=== PATIENT | female | born 1990 | race Caucasian/White ===

== ENCOUNTER 2021-04-29 17:36 | Emergency (ER) | payer MEDICAID ==
[~2021-04-29] VITALS: Ht 157.5 cm; Wt 56.8 kg
[2021-04-29 18:20] LABS: BASOPHILS % (AUTO) 0.6 % (0.0-2.0); EOSINOPHILS % (AUTO) 0.9 % (1.0-6.0); HEMATOCRIT 38.7 % (36-46); HEMOGLOBIN 13.1 g/dL (12.0-16.0); LYMPHOCYTES # (AUTO) 1.7 K/uL (1.0-4.8); LYMPHOCYTES % (AUTO) 26.4 % (22.0-44.0); MEAN CORPUSCULAR HEMOGLOBIN 29.3 pg (26.0-34.0); MEAN CORPUSCULAR VOLUME 86 fL (80-100); MONOCYTES # (AUTO) 0.4 K/uL (0.1-1.0); MONOCYTES % (AUTO) 6.2 % (2.0-9.0); NEUTROPHILS # (AUTO) 4.2 K/uL (1.8-7.7); NEUTROPHILS % (AUTO) 65.9 % (40.0-70.0); PLATELET COUNT (AUTO) 377 K/uL (150-450); RED BLOOD CELL COUNT(AUTO) 4.48 MIL/uL (4.00-5.20); RED CELL DISTRIBUTION WIDTH 13.5 % (11.5-14.5)
[2021-04-29 18:29] LABS: ANION GAP 11 mmol/L (8-16); CALCIUM, TOTAL 9.2 mg/dL (8.8-10.5); CARBON DIOXIDE 28 mmol/L (22-29); CHLORIDE 102 mmol/L (98-107); CREATININE 0.77 mg/dL (0.60-1.30); GLOMERULAR FILTR. RATE CALC > 60 mL/min (>60); GLUCOSE,RANDOM 101 mg/dL (70-110); POTASSIUM 4.1 mmol/L (3.5-5.1); SODIUM SERUM 141 mmol/L (136-145); UREA NITROGEN, BLOOD 12 mg/dL (7-18)
[2021-04-29 18:33] LABS: INR 1.1 (0.9-1.1); PROTHROMBIN TIME 11.3 SEC (9.4-11.6)
[2021-04-29 18:41] LABS: ALANINE AMINOTRANSFERASE 24 U/L (12-78); ALBUMIN 4.2 g/dL (3.4-5.0); ALKALINE PHOSPHATASE 78 U/L (46-116); ASPARTATE AMINOTRANSFERASE 13 U/L (15-37); BILIRUBIN,TOTAL 0.2 mg/dL (0.1-1.0); HCG,QUANTITATIVE 1 mIU/mL (0-6); TOTAL PROTEIN, SERUM 7.9 g/dL (6.4-8.2)
[2021-04-29] MEDS ORDERED: IOHEXOL 350 MG/ML 100 ML VIAL ONE (19:41)
[2021-04-29] MEDS ORDERED: SODIUM CHLORIDE 0.9% 100 ML ONE (19:41)
[2021-04-29] MEDS ORDERED: IOHEXOL 350 MG/ML 75 ML VIAL ONE (19:47)
[2021-04-29] MEDS ORDERED: LEVE500T8 PO (20:51)
[2021-04-29] MEDS ORDERED: LevETIRAcetam 500 MG in DEXTROSE 5%-WATER 100 ML IV ONE (21:00)
[2021-04-29 21:15] VITALS: BP 109/79
== END 2021-04-29 21:25 | disposition home or self-care (01) ==
LOC: EMS 18:06
DX: R56.9 Unspecified convulsions (principal)
CPT/HCPCS: 36415; 70450; 70496; 70498; 71045; 80053; 84484; 84702; 85025; 85610; 85730; 86850; 86900; 86901; 93005; 96374; 99285; J0712; J7050; J7060; Q9967

== ENCOUNTER 2021-05-24 10:58 | Emergency (ER) | payer MEDICAID ==
[~2021-05-24] VITALS: Ht 157.5 cm; Wt 56.5 kg
[~2021-05-24 10:58] MED LIST: LEVE500T8 PO
[2021-05-24] MEDS ORDERED: SODIUM CHLORIDE 0.9% 1,000 ML IV ONE (11:45)
[2021-05-24 11:58] LABS: BASOPHILS % (AUTO) 0.8 % (0.0-2.0); EOSINOPHILS % (AUTO) 0.6 % (1.0-6.0); HEMATOCRIT 38.1 % (36-46); HEMOGLOBIN 12.8 g/dL (12.0-16.0); LYMPHOCYTES # (AUTO) 2.1 K/uL (1.0-4.8); LYMPHOCYTES % (AUTO) 26.1 % (22.0-44.0); MEAN CORPUSCULAR HEMOGLOBIN 29.1 pg (26.0-34.0); MEAN CORPUSCULAR HGB CONC 33.6 G/dL (31.0-37.0); MEAN CORPUSCULAR VOLUME 87 fL (80-100); MONOCYTES # (AUTO) 0.4 K/uL (0.1-1.0); MONOCYTES % (AUTO) 4.9 % (2.0-9.0); NEUTROPHILS # (AUTO) 5.6 K/uL (1.8-7.7); NEUTROPHILS % (AUTO) 67.6 % (40.0-70.0); PLATELET COUNT (AUTO) 379 K/uL (150-450); RED BLOOD CELL COUNT(AUTO) 4.39 MIL/uL (4.00-5.20)
[2021-05-24 12:04] LABS: ANION GAP 13 mmol/L (8-16); CARBON DIOXIDE 24 mmol/L (22-29); CHLORIDE 104 mmol/L (98-107); CREATININE 0.67 mg/dL (0.60-1.30); GLOMERULAR FILTR. RATE CALC > 60 mL/min (>60); GLUCOSE,RANDOM 101 mg/dL (70-110); POTASSIUM 3.6 mmol/L (3.5-5.1); SODIUM SERUM 141 mmol/L (136-145); UREA NITROGEN, BLOOD 13 mg/dL (7-18)
[2021-05-24 12:12] LABS: ALANINE AMINOTRANSFERASE 29 U/L (12-78); ALBUMIN 4.1 g/dL (3.4-5.0); ALKALINE PHOSPHATASE 72 U/L (46-116); ASPARTATE AMINOTRANSFERASE 17 U/L (15-37); BILIRUBIN,TOTAL 0.3 mg/dL (0.1-1.0); TOTAL PROTEIN, SERUM 7.9 g/dL (6.4-8.2)
[2021-05-24 12:41] VITALS: BP 113/75
== END 2021-05-24 12:48 | disposition home or self-care (01) ==
LOC: EMS 11:00
DX: R56.9 Unspecified convulsions (principal)
CPT/HCPCS: 36415; 80053; 82962; 85025; 96360; 99283; J7030

== ENCOUNTER 2021-06-10 18:04 | Emergency (ER) | payer MEDICAID ==
[~2021-06-10] VITALS: Ht 157.5 cm; Wt 56.8 kg
[2021-06-10] MEDS ORDERED: LORazepam 2 MG/ML VIAL ONE (18:08)
[2021-06-10] MEDS ORDERED: LORazepam 2 MG/ML VIAL IVP ONE (18:15)
[2021-06-10] MEDS ORDERED: SODIUM CHLORIDE 0.9% 1,000 ML IV ONE (18:15)
[2021-06-10 18:19] LABS: BASOPHILS % (AUTO) 0.8 % (0.0-2.0); EOSINOPHILS % (AUTO) 0.5 % (1.0-6.0); HEMATOCRIT 41.5 % (36-46); HEMOGLOBIN 14.1 g/dL (12.0-16.0); LYMPHOCYTES # (AUTO) 3.4 K/uL (1.0-4.8); MEAN CORPUSCULAR HEMOGLOBIN 29.1 pg (26.0-34.0); MEAN CORPUSCULAR VOLUME 86 fL (80-100); MONOCYTES # (AUTO) 0.6 K/uL (0.1-1.0); MONOCYTES % (AUTO) 5.4 % (2.0-9.0); NEUTROPHILS # (AUTO) 6.3 K/uL (1.8-7.7); NEUTROPHILS % (AUTO) 60.3 % (40.0-70.0); PLATELET COUNT (AUTO) 420 K/uL (150-450); RED BLOOD CELL COUNT(AUTO) 4.84 MIL/uL (4.00-5.20); RED CELL DISTRIBUTION WIDTH 13.8 % (11.5-14.5)
[2021-06-10 18:29] LABS: ANION GAP 14 mmol/L (8-16); CALCIUM, TOTAL 9.5 mg/dL (8.8-10.5); CARBON DIOXIDE 26 mmol/L (22-29); CHLORIDE 99 mmol/L (98-107); GLOMERULAR FILTR. RATE CALC > 60 mL/min (>60); GLUCOSE,RANDOM 96 mg/dL (70-110); POTASSIUM 3.5 mmol/L (3.5-5.1); SODIUM SERUM 139 mmol/L (136-145); UREA NITROGEN, BLOOD 12 mg/dL (7-18)
[2021-06-10 18:35] LABS: ALANINE AMINOTRANSFERASE 27 U/L (12-78); ALBUMIN 5.3 g/dL (3.4-5.0); ALKALINE PHOSPHATASE 90 U/L (46-116); ASPARTATE AMINOTRANSFERASE 15 U/L (15-37); BILIRUBIN,TOTAL 0.4 mg/dL (0.1-1.0)
[2021-06-10 20:36] LABS: HCG,QUANTITATIVE < 1 mIU/mL (0-6)
[2021-06-10 20:50] LABS: AMPHET/METH SCREEN,URINE NEGATIVE (NEGATIVE); BARBITURATE SCREEN, URINE NEGATIVE (NEGATIVE); BENZODIAZEPINES SCREEN,URINE POSITIVE (NEGATIVE); CANNABINOID SCREEN,URINE NEGATIVE (NEGATIVE); COCAINE SCREEN,URINE NEGATIVE (NEGATIVE); METHADONE SCREEN, URINE NEGATIVE (NEGATIVE); OPIATE SCREEN,URINE NEGATIVE (NEGATIVE)
[2021-06-10 20:52] LABS: PHENCYCLIDINE SCREEN,URINE NEGATIVE (NEGATIVE)
[2021-06-10 21:49] VITALS: BP 124/84
== END 2021-06-10 22:10 | disposition home or self-care (01) ==
LOC: EMS 18:04
DX: R56.9 Unspecified convulsions (principal)
CPT/HCPCS: 36415; 80053; 80307; 84702; 85025; 96361; 96374; 99283; G0480; J2060; J7030

== ENCOUNTER 2021-09-27 19:02 | Emergency (ER) | payer MEDICAID ==
[~2021-09-27] VITALS: Ht 160 cm; Wt 56.8 kg
[2021-09-27] MEDS ORDERED: LORazepam 1 MG TABLET PO ONE (19:15)
[2021-09-27 19:30] VITALS: BP 141/79
[2021-09-27 20:11] LABS: GLUCOMETER DEV NAME(LOC) ERT.5; GLUCOSE,POINT OF CARE 111 MG/DL (70-110)
== END 2021-09-28 01:13 | disposition home or self-care (01) ==
LOC: EMS 19:06
DX: G40.909 Epilepsy, unspecified, not intractable, without status epilepticus (principal); F10.20 Alcohol dependence, uncomplicated; Z87.442 Personal history of urinary calculi; Z87.440 Personal history of urinary (tract) infections
CPT/HCPCS: 82948; 82962; 99283

== ENCOUNTER 2022-03-17 23:59 | Emergency (ER) | payer MEDICAID ==
[~2022-03-17] VITALS: Ht 167.6 cm; Wt 54.5 kg
[2022-03-18] MEDS ORDERED: GABA-1181 PO ×2 (00:08→00:59)
[2022-03-18] MEDS ORDERED: LORA-999 PO (00:08)
[2022-03-18] MEDS ORDERED: HYDR-4808 PO (00:08)
[2022-03-18] MEDS ORDERED: SERT-158 PO ×2 (00:08→00:59)
[2022-03-18] MEDS ORDERED: HYDR50CA6 PO (00:29)
[2022-03-18] MEDS ORDERED: PRAZ1 PO ×2 (00:29→00:59)
[2022-03-18] MEDS ORDERED: LEVE500T20 PO (00:29)
[2022-03-18] MEDS ORDERED: TRAZ-252 PO ×2 (00:29→00:59)
[2022-03-18] MEDS ORDERED: HYDR50CA7 PO (00:59)
[2022-03-18] MEDS ORDERED: LORA-1000 PO (00:59)
[2022-03-18] MEDS ORDERED: TraZODone HCL 50 MG TABLET PO ONE (01:00)
[2022-03-18] MEDS ORDERED: LORazepam 2 MG TABLET PO ONE (01:00)
[2022-03-18 02:06] VITALS: BP 135/69
== END 2022-03-18 02:11 | disposition home or self-care (01) ==
LOC: EMS 03-18 00:03
DX: F41.9 Anxiety disorder, unspecified (principal); F43.10 Post-traumatic stress disorder, unspecified; F32.A Depression, unspecified; Z98.890 Other specified postprocedural states; X58.XXXA Exposure to other specified factors, initial encounter; Y93.89 Activity, other specified; Y92.89 Other specified places as the place of occurrence of the external cause; Y99.8 Other external cause status
CPT/HCPCS: 99283

== ENCOUNTER 2022-06-11 22:24 | Emergency (ER) | payer MEDICAID ==
[~2022-06-11] VITALS: Ht 157.5 cm; Wt 54.5 kg
[~2022-06-11 22:24] MED LIST changes: +GABA-1181 PO; +HYDR50CA6 PO; +HYDR50CA7 PO; +LEVE500T20 PO; +LORA-1000 PO; +LORA-999 PO; +PRAZ1 PO; +SERT-158 PO; +TRAZ-252 PO
[2022-06-11] MEDS ORDERED: ACETAMINOPHEN 500 MG TABLET PO ONE (23:30)
[2022-06-11 23:45] LABS: BASOPHILS % (AUTO) 0.5 % (0.0-2.0); EOSINOPHILS % (AUTO) 0.1 % (1.0-6.0); HEMATOCRIT 38.3 % (36-46); HEMOGLOBIN 12.9 g/dL (12.0-16.0); LYMPHOCYTES # (AUTO) 1.3 K/uL (1.0-4.8); LYMPHOCYTES % (AUTO) 13.7 % (22.0-44.0); MEAN CORPUSCULAR HEMOGLOBIN 28.3 pg (26.0-34.0); MEAN CORPUSCULAR HGB CONC 33.6 G/dL (31.0-37.0); MEAN CORPUSCULAR VOLUME 84 fL (80-100); MONOCYTES # (AUTO) 0.5 K/uL (0.1-1.0); MONOCYTES % (AUTO) 5.2 % (2.0-9.0); NEUTROPHILS # (AUTO) 7.8 K/uL (1.8-7.7); NEUTROPHILS % (AUTO) 80.5 % (40.0-70.0); PLATELET COUNT (AUTO) 300 K/uL (150-450); RED BLOOD CELL COUNT(AUTO) 4.54 MIL/uL (4.00-5.20); RED CELL DISTRIBUTION WIDTH 16.6 % (11.5-14.5)
[2022-06-11 23:54] LABS: ANION GAP 9 mmol/L (8-16); CALCIUM, TOTAL 8.8 mg/dL (8.8-10.5); CARBON DIOXIDE 28 mmol/L (22-29); CHLORIDE 102 mmol/L (98-107); CREATININE 0.86 mg/dL (0.60-1.30); GLOMERULAR FILTR. RATE CALC > 60 mL/min (>60); GLUCOSE,RANDOM 104 mg/dL (70-110); POTASSIUM 3.4 mmol/L (3.5-5.1); SODIUM SERUM 139 mmol/L (136-145); UREA NITROGEN, BLOOD 7 mg/dL (7-18)
[2022-06-12 00:01] LABS: ALANINE AMINOTRANSFERASE 90 U/L (12-78); ALBUMIN 4.5 g/dL (3.4-5.0); ALKALINE PHOSPHATASE 109 U/L (46-116); ASPARTATE AMINOTRANSFERASE 70 U/L (15-37); BILIRUBIN,TOTAL 0.2 mg/dL (0.1-1.0); TOTAL PROTEIN, SERUM 8.2 g/dL (6.4-8.2)
[2022-06-12 00:13] LABS: COVID AG,FIA SOURCE NASOPHARYNGEAL
[2022-06-12 00:37] LABS: INFLUENZA TYPE A NEGATIVE FOR TYPE A (NEGATIVE); INFLUENZA TYPE B NEGATIVE FOR TYPE B (NEGATIVE)
[2022-06-12 01:37] VITALS: BP 110/70
== END 2022-06-12 01:40 | disposition home or self-care (01) ==
LOC: EMS 23:03
DX: F32.A Depression, unspecified (principal); U07.1 COVID-19; F41.9 Anxiety disorder, unspecified; Z98.890 Other specified postprocedural states
CPT/HCPCS: 99284; 71045; 87426; 80053; 85025; 87804; 36415; G0480

== ENCOUNTER 2022-09-12 20:37 | Inpatient (IN) | payer MEDICAID ==
[~2022-09-12] VITALS: Ht 157.5 cm; Wt 56.8 kg
[~2022-09-12 20:37] MED LIST changes: -TRAZ-252 PO
[2022-09-12 21:54] LABS: COVID AG,FIA SOURCE NASOPHARYNGEAL
[2022-09-12 21:56] LABS: APPEARANCE,URINE HAZY (CLEAR); BILIRUBIN,URINE NEGATIVE (NEGATIVE); GLUCOSE, URINE (UA) NEGATIVE (NEGATIVE); KETONES,URINE NEGATIVE (NEGATIVE); LEUKOCYTE ESTERASE ,URINE NEGATIVE (NEGATIVE); NITRATE,URINE NEGATIVE (NEGATIVE); OCCULT BLOOD,URINE MODERATE (NEGATIVE); PH,URINE 5.5 (5.0-8.0); PROTEIN,URINE NEGATIVE (NEGATIVE); SPECIFIC GRAVITIY, URINE 1.003 (1.003-1.030); UROBILINOGEN,URINE <=1.0 mg/dL (<=1.0)
[2022-09-12 22:02] LABS: AMPHET/METH SCREEN,URINE NEGATIVE (NEGATIVE); BARBITURATE SCREEN, URINE NEGATIVE (NEGATIVE); BENZODIAZEPINES SCREEN,URINE NEGATIVE (NEGATIVE); CANNABINOID SCREEN,URINE NEGATIVE (NEGATIVE); COCAINE SCREEN,URINE NEGATIVE (NEGATIVE); METHADONE SCREEN, URINE NEGATIVE (NEGATIVE); OPIATE SCREEN,URINE NEGATIVE (NEGATIVE); PHENCYCLIDINE SCREEN,URINE NEGATIVE (NEGATIVE)
[2022-09-12 22:05] LABS: SQUAMOUS EPITHELIAL CELL,UR Many /LPF (None Seen)
[2022-09-12 22:07] LABS: RBC,URINE 0-2 /HPF (0-2); WBC,URINE 0-2 /HPF (0-5)
[2022-09-12 22:09] LABS: BACTERIA,URINE Rare /HPF (None Seen)
[2022-09-12] MEDS: ZOLPIDEM TARTRATE 10 MG TABLET PO PRN (22:28)
[2022-09-12] MEDS: LORazepam 2 MG TABLET PO PRN (22:29)
[2022-09-12] MEDS ORDERED: HALOPERIDOL 5 MG TABLET PO PRN (22:30)
[2022-09-12 22:34] LABS: BASOPHILS % (AUTO) 0.9 % (0.0-2.0); EOSINOPHILS % (AUTO) 1.1 % (1.0-6.0); HEMATOCRIT 39.2 % (36-46); HEMOGLOBIN 12.8 g/dL (12.0-16.0); LYMPHOCYTES # (AUTO) 3.3 K/uL (1.0-4.8); LYMPHOCYTES % (AUTO) 38.9 % (22.0-44.0); MEAN CORPUSCULAR HEMOGLOBIN 28.1 pg (26.0-34.0); MEAN CORPUSCULAR HGB CONC 32.7 G/dL (31.0-37.0); MEAN CORPUSCULAR VOLUME 86 fL (80-100); MONOCYTES # (AUTO) 0.3 K/uL (0.1-1.0); MONOCYTES % (AUTO) 2.9 % (2.0-9.0); NEUTROPHILS # (AUTO) 4.8 K/uL (1.8-7.7); NEUTROPHILS % (AUTO) 56.2 % (40.0-70.0); PLATELET COUNT (AUTO) 405 K/uL (150-450); RED BLOOD CELL COUNT(AUTO) 4.56 MIL/uL (4.00-5.20); RED CELL DISTRIBUTION WIDTH 14.5 % (11.5-14.5)
[2022-09-12 22:43] LABS: ANION GAP 15 mmol/L (8-16); CALCIUM, TOTAL 9.2 mg/dL (8.8-10.5); CARBON DIOXIDE 23 mmol/L (22-29); CHLORIDE 103 mmol/L (98-107); CREATININE 0.71 mg/dL (0.60-1.30); GLOMERULAR FILTR. RATE CALC > 60 mL/min (>60); GLUCOSE,RANDOM 90 mg/dL (70-110); POTASSIUM 3.1 mmol/L (3.5-5.1); SODIUM SERUM 141 mmol/L (136-145)
[2022-09-12 22:51] LABS: ALANINE AMINOTRANSFERASE 29 U/L (12-78); ALBUMIN 4.6 g/dL (3.4-5.0); ALKALINE PHOSPHATASE 98 U/L (46-116); ASPARTATE AMINOTRANSFERASE 18 U/L (15-37); BILIRUBIN,TOTAL 0.1 mg/dL (0.1-1.0); TOTAL PROTEIN, SERUM 8.5 g/dL (6.4-8.2)
[2022-09-12] MEDS ORDERED: LIDOCAINE 1% 10 ML VIAL SQ ONE (23:15)
[2022-09-12] MEDS ORDERED: POTASSIUM CHLORIDE 20 MEQ ER TABLET PO ONE (23:30)
[2022-09-13 00:59] VITALS: BP 112/60; PULSE 96; RESP 18; TEMP 98; O2SAT 98
[2022-09-13 08:00] VITALS: BP 93/56; PULSE 59; RESP 18; TEMP 98.3; O2SAT 97
[2022-09-13] MEDS: LevETIRAcetam 500 MG TABLET PO SCH ×2 (08:36→16:33)
[2022-09-13] MEDS ORDERED: CloNIDine HCL 0.1 MG TABLET PO PRN (08:45)
[2022-09-13] MEDS ORDERED: ONDANSETRON HCL 4 MG TABLET PO PRN (08:45)
[2022-09-13] MEDS ORDERED: GuaiFENesin/D-METHORPHAN [SUGAR-FREE] 200-20MG/10 ML SYRUP UDCUP PO PRN (08:45)
[2022-09-13] MEDS ORDERED: IBUPROFEN 400 MG TABLET PO PRN (08:45)
[2022-09-13] MEDS ORDERED: LOPERAMIDE HCL 2 MG CAPSULE PO PRN (08:45)
[2022-09-13] MEDS ORDERED: ALBUTEROL SULFATE HFA 90 MCG/PUFF 8 GM INHALER IH PRN (08:45)
[2022-09-13] MEDS ORDERED: PETROLATUM,WHITE 28 GM JELLY TP PRN (08:45)
[2022-09-13] MEDS ORDERED: DOCUSATE SODIUM 100 MG CAPSULE PO PRN (08:45)
[2022-09-13] MEDS ORDERED: MAG HYDROX/AL HYDROX/SIMETH ES 30 ML SUSPENSION UDCUP PO PRN (08:45)
[2022-09-13] MEDS ORDERED: ACETAMINOPHEN 325 MG TABLET PO PRN (08:45)
[2022-09-13] MEDS ORDERED: MAGNESIUM HYDROXIDE SUSPENSION 30 ML UDCUP PO PRN (08:45)
[2022-09-13] MEDS ORDERED: NICOTINE 14 MG/24 HOUR PATCH TD PRN (08:45)
[2022-09-13] MEDS ORDERED: GABAPENTIN 300 MG CAPSULE PO SCH (09:00)
[2022-09-13] MEDS ORDERED: HYDR-4808 PO (09:28)
[2022-09-13] MEDS ORDERED: SERT-440 PO (09:28)
[2022-09-13] MEDS: SERTRALINE HCL 100 MG TABLET PO SCH (10:14)
[2022-09-13] MEDS: HydrOXYzine PAMOATE 25 MG CAPSULE PO SCH ×2 (13:43→16:33)
[2022-09-13 20:37] VITALS: BP 100/67; PULSE 69; RESP 18; TEMP 98.2; O2SAT 100
[2022-09-13] MEDS: PRAZOSIN HCL 1 MG CAPSULE PO SCH (21:02)
[2022-09-14 07:39] LABS: POTASSIUM 3.6 mmol/L (3.5-5.1)
[2022-09-14 07:41] LABS: HEMOGLOBIN A1C 4.9 % (3.8-5.6)
[2022-09-14 08:00] LABS: THYROID STIMULATING HORMONE 1.71 uIU/mL (0.36-3.74)
[2022-09-14] MEDS: LevETIRAcetam 500 MG TABLET PO SCH ×2 (08:18→16:27)
[2022-09-14] MEDS: SERTRALINE HCL 100 MG TABLET PO SCH (08:19)
[2022-09-14] MEDS: GABAPENTIN 300 MG CAPSULE PO SCH (08:19)
[2022-09-14] MEDS: HydrOXYzine PAMOATE 25 MG CAPSULE PO SCH ×3 (08:19→16:27)
[2022-09-14 08:28] LABS: CHOL/HDL RATIO 2.3 (3.9-5.7)
[2022-09-14 09:03] VITALS: BP 96/60; PULSE 78; RESP 18; TEMP 97.6; O2SAT 98
[2022-09-14] MEDS: PRAZOSIN HCL 1 MG CAPSULE PO SCH (20:20)
[2022-09-14 20:36] VITALS: BP 94/57; PULSE 74; RESP 16; TEMP 98.3; O2SAT 99
[2022-09-15 08:00] VITALS: BP 96/63; PULSE 69; RESP 18; TEMP 97.1; O2SAT 96
[2022-09-15] MEDS: SERTRALINE HCL 100 MG TABLET PO SCH (08:21)
[2022-09-15] MEDS: LevETIRAcetam 500 MG TABLET PO SCH ×2 (08:21→16:21)
[2022-09-15] MEDS: HydrOXYzine PAMOATE 25 MG CAPSULE PO SCH ×3 (08:22→16:20)
[2022-09-15] MEDS: GABAPENTIN 300 MG CAPSULE PO SCH (08:22)
[2022-09-15 20:05] VITALS: BP 103/59; PULSE 90; RESP 18; TEMP 97.9; O2SAT 99
[2022-09-15] MEDS: PRAZOSIN HCL 1 MG CAPSULE PO SCH (20:54)
[2022-09-15] MEDS: LORazepam 2 MG TABLET PO PRN (22:28)
[2022-09-16 08:20] VITALS: BP 107/61; PULSE 90; RESP 18; TEMP 97.1; O2SAT 98
[2022-09-16] MEDS: GABAPENTIN 300 MG CAPSULE PO SCH (08:26)
[2022-09-16] MEDS: SERTRALINE HCL 100 MG TABLET PO SCH (08:26)
[2022-09-16] MEDS: HydrOXYzine PAMOATE 25 MG CAPSULE PO SCH ×3 (08:26→16:15)
[2022-09-16] MEDS: LevETIRAcetam 500 MG TABLET PO SCH ×2 (08:26→16:15)
[2022-09-16] MEDS: ZOLPIDEM TARTRATE 10 MG TABLET PO PRN (20:37)
[2022-09-16] MEDS: PRAZOSIN HCL 1 MG CAPSULE PO SCH (20:37)
[2022-09-16 20:40] VITALS: BP 106/63; PULSE 88; RESP 18; TEMP 97.3; O2SAT 97
[2022-09-16] MEDS: LORazepam 2 MG TABLET PO PRN (21:20)
[2022-09-17] MEDS: GABAPENTIN 300 MG CAPSULE PO SCH (08:27)
[2022-09-17] MEDS: LevETIRAcetam 500 MG TABLET PO SCH (08:28)
[2022-09-17] MEDS: SERTRALINE HCL 100 MG TABLET PO SCH (08:28)
[2022-09-17] MEDS: HydrOXYzine PAMOATE 25 MG CAPSULE PO SCH (08:28)
[2022-09-17 09:00] VITALS: BP 100/59; PULSE 65; RESP 17; TEMP 97.6; O2SAT 100
[2022-09-17] MEDS: LORazepam 2 MG TABLET PO PRN (10:31)
[2022-09-17] MEDS ORDERED: LEVE500T20 PO ×2 (12:51→12:52)
[2022-09-17] MEDS ORDERED: PRAZ1 PO (12:54)
== END 2022-09-17 15:39 | disposition home or self-care (01) | DRG 751 ==
LOC: EMS 20:37 → 3EI 23:31
PROVIDERS: ADMIT Psychiatry & Neurology Psychiatry; ATTEND Psychiatry & Neurology Psychiatry
PROC: 0HQEXZZ Repair Left Lower Arm Skin, External Approach (ICD-10-PCS; principal; 2022-09-12)
DX: F33.2 Major depressive disorder, recurrent severe without psychotic features (principal); G40.909 Epilepsy, unspecified, not intractable, without status epilepticus; R45.851 Suicidal ideations; E87.6 Hypokalemia; F10.10 Alcohol abuse, uncomplicated; F43.12 Post-traumatic stress disorder, chronic; Z20.822 Contact with and (suspected) exposure to COVID-19; S61.512A Laceration without foreign body of left wrist, initial encounter; F41.9 Anxiety disorder, unspecified; Y90.6 Blood alcohol level of 120-199 mg/100 ml; X58.XXXA Exposure to other specified factors, initial encounter; Z79.899 Other long term (current) drug therapy; Z98.891 History of uterine scar from previous surgery; Y93.89 Activity, other specified; Y92.89 Other specified places as the place of occurrence of the external cause; Y99.8 Other external cause status
CPT/HCPCS: 80053; 80061; 80307; 81001; 83036; 84132; 84443; 85025; 99285; G0480; J3490

== ENCOUNTER 2022-09-24 08:42 | Emergency (ER) | payer MEDICAID ==
[~2022-09-24] VITALS: Ht 157.5 cm; Wt 56.8 kg
[~2022-09-24 08:42] MED LIST changes: +HYDR-4808 PO; -HYDR50CA6 PO; -HYDR50CA7 PO; -LEVE500T8 PO; -LORA-1000 PO; -LORA-999 PO; -SERT-158 PO; +SERT-440 PO
[2022-09-24 08:45] VITALS: BP 95/58; PULSE 84; RESP 16; TEMP 98.2
== END 2022-09-24 09:05 | disposition home or self-care (01) ==
LOC: EMS 08:45
DX: S61.512D Laceration without foreign body of left wrist, subsequent encounter (principal); F41.9 Anxiety disorder, unspecified; F32.A Depression, unspecified; Z48.02 Encounter for removal of sutures; Z98.890 Other specified postprocedural states; X83.8XXD Intentional self-harm by other specified means, subsequent encounter
CPT/HCPCS: 99281; Z7502

== ENCOUNTER 2022-12-14 23:17 | Emergency (ER) | payer MEDICAID ==
[~2022-12-14] VITALS: Ht 157.5 cm; Wt 59.1 kg
[2022-12-14 23:42] VITALS: BP 122/71; PULSE 97; RESP 16; TEMP 98.6
[2022-12-15] MEDS ORDERED: HYDR-4808 PO (00:08)
[2022-12-15] MEDS ORDERED: LEVE500T8 PO (00:08)
[2022-12-15] MEDS ORDERED: LevETIRAcetam 500 MG TABLET PO ONE (00:15)
[2022-12-15] MEDS ORDERED: HydrOXYzine PAMOATE 50 MG CAPSULE PO ONE (00:15)
== END 2022-12-15 00:16 | disposition home or self-care (01) ==
LOC: EMS 23:18
DX: F41.9 Anxiety disorder, unspecified (principal); R07.89 Other chest pain; F32.A Depression, unspecified; Z98.890 Other specified postprocedural states
CPT/HCPCS: 93005; 99283